=== PATIENT | female | born 1970 | race African-American/Black ===

== ENCOUNTER 2019-06-03 14:47 | Observation (INO) ==
[2019-06-03] MEDS ORDERED: ASPIRIN 325 MG TABLET PO STA (15:49)
[2019-06-03 16:38] LABS: Basophils # 0.1 10*3/uL (0.0-0.2); Eosinophils % 0.6 % (0.00-10.9); Hematocrit 41.4 VOL% (35.7-47.0); Hemoglobin 13.8 GM/DL (12.0-16.0); Immature Granulocytes % 0.2 %; Immature Granulocytes Absolute 0.01 #; Lymphocytes # 1.9 10*3/uL (1.4-4.0); Lymphocytes % 29.7 % (21.3-54.2); Mean Corpuscular HGB Conc 33.3 GM/DL (32-36); Mean Platelet Volume 9.1 FL (9.6-12.0); Monocytes % 6.6 % (1.7-12.7); Neutrophils % 61.9 % (38.7-73.9); Platelet Count 269 T/CUMM (130-400); Red Blood Count 4.45 MC/CUMM (3.8-5.5); Red Cell Distribution Width 12.9 % (9.3-17.3); White Blood Count 6.2 T/CUMM (4-12)
[2019-06-03 16:58] LABS: Alanine Aminotransferase 22 U/L (13-56); Albumin 3.6 G/DL (3.4-5.0); Alkaline Phosphatase 89 U/L (45-117); Aspartate Amino Transferase 13 U/L (0-37); Bilirubin,Total < 0.39 MG/DL (0.2-1.0); Blood Urea Nitrogen 10 MG/DL (7-18); Calcium 8.8 MG/DL (8.5-10.1); Estimated Glom Filtration Rate 151 ML/MIN; Glucose 108 MG/DL (74-106); Osmolality,Calculated 272.8 MOS/KG (273-304); Total Protein 7.5 G/DL (6.4-8.3)
[2019-06-03 17:00] LABS: Troponin I < 0.015 NG/ML (0.00-0.045)
[2019-06-03] MEDS ORDERED: amLODIPine 5 MG TABLET PO STA (17:37)
[2019-06-03] MEDS ORDERED: ACETAMINOPHEN 325 MG TABLET PO PRN (17:40)
[2019-06-03] MEDS ORDERED: ONDANSETRON 4 MG/2 ML VIAL IV PRN (17:40)
[2019-06-03] MEDS ORDERED: ENOXAPARIN 40 MG/0.4 ML SYRINGE SUBCUT SCH (21:00)
[2019-06-04 05:43] LABS: Basophils # 0.1 10*3/uL (0.0-0.2); Basophils % 0.8 % (0.0-0.8); Eosinophils # 0.1 10*3/uL (0.0-0.87); Eosinophils % 1.1 % (0.00-10.9); Hematocrit 40.8 VOL% (35.7-47.0); Hemoglobin 13.7 GM/DL (12.0-16.0); Immature Granulocytes % 0.1 %; Immature Granulocytes Absolute 0.01 #; Lymphocytes # 3.4 10*3/uL (1.4-4.0); Lymphocytes % 47.8 % (21.3-54.2); Mean Corpuscular HGB Conc 33.6 GM/DL (32-36); Mean Corpuscular Volume 92.3 FL (87-102); Mean Platelet Volume 8.8 FL (9.6-12.0); Monocytes % 7.1 % (1.7-12.7); Neutrophils % 43.1 % (38.7-73.9); Platelet Count 261 T/CUMM (130-400); Red Blood Count 4.42 MC/CUMM (3.8-5.5); Red Cell Distribution Width 12.7 % (9.3-17.3); White Blood Count 7.1 T/CUMM (4-12)
[2019-06-04 06:12] LABS: Calcium 8.8 MG/DL (8.5-10.1)
[2019-06-04 06:13] LABS: Osmolality,Calculated 278.3 MOS/KG (273-304)
[2019-06-04] MEDS ORDERED: PANTOPRAZOLE 40 MG TABLET PO SCH (09:00)
[2019-06-04] MEDS ORDERED: ASPIRIN CHEW 81 MG TABLET PO SCH (09:00)
[2019-06-04] MEDS ORDERED: amLODIPine 10 MG TABLET PO SCH (09:00)
[2019-06-04 16:22] VITALS: BP 117/73
== END 2019-06-04 19:33 | disposition home or self-care (01) ==
LOC: N.ED 14:47 → N.EDINP 14:47 → N.2W 19:19
PROVIDERS: ADMIT Internal Medicine Cardiovascular Disease; ATTEND Internal Medicine Cardiovascular Disease